=== PATIENT | male | born 1935 | race Caucasian/White ===

== ENCOUNTER 2024-06-24 11:28 | Emergency (ER) | payer OTHER, MEDICARE ==
[~2024-06-24] VITALS: Ht 182.9 cm; Wt 88.5 kg
[~2024-06-24 11:28] MED LIST: ACETAMINOPHEN500 MG PO; ASPIR-LOW81 MG PO; ATENOLOL50 MG PO; DOXYCYCLINE HY100 MG PO; FISH OIL 1,0001 EAC3 PO; HYDROCHLOROTH12.5 MG PO; HYDROCODON-ACE1 EA10 PO; LIPITOR40 MG PO; MELOXICAM7.5 MG PO; MIRALAX17 GM PO; OMEPRAZOLE20 MG PO; PLAVIX75 MG PO; PREDNISONE20 MG PO; TRAVATAN Z5 ML OPTH; VENTOLIN HFA18 GM INH; VITAMIN D31000 UNI1 PO
[2024-06-24 12:37] LABS: BASOPHILS 0.5 % (0-2); EOSINOPHILS 1.1 % (0-6); HEMATOCRIT 39.3 % (35.0-50.0); HEMOGLOBIN 13.2 g/dL (12.0-18.0); LYMPHOCYTES 18.5 % (24-44); MCH 30.6 (27-36); MCHC 33.7 g/dl (30-36); MCV 90.9 fl (81-99); MONOCYTES 14.5 % (0-12); NEUTROPHILS 65.4 % (39-80); PLATELET COUNT 209 K/uL (140-440); RBC 4.32 M/ul (4.3-5.7); RDW 12.7 (10.5-15.0)
[2024-06-24 12:47] LABS: ALBUMIN 3.3 g/dL (3.4-5.0); ALBUMIN/GLOBULIN RATIO 1.03 (1.1-2.4); ANION GAP 15.1 (7-21); BILIRUBIN, TOTAL 0.5 ng/dL (0.2-1.0); BUN/CREATININE RATIO 17.72 (6.0-28.6); CREATININE, SERUM 0.79 mg/dL (0.70-1.30); POTASSIUM 4.1 mmol/L (3.5-5.1); PROTEIN, TOTAL 6.5 g/dL (6.4-8.2)
[2024-06-24 14:35] VITALS: BP 123/84
== END 2024-06-24 14:37 | disposition home or self-care (01) ==
LOC: ED 11:28
PROVIDERS: Emergency Medicine
DX: R19.7 Diarrhea, unspecified (principal); I10 Essential (primary) hypertension; I25.2 Old myocardial infarction; K21.9 Gastro-esophageal reflux disease without esophagitis; Z79.899 Other long term (current) drug therapy; Z79.82 Long term (current) use of aspirin
CPT/HCPCS: 36415; 80053; 85025; 99284